=== PATIENT | male | born 1995 | race Two or more races ===

== ENCOUNTER → 2020-05-02 | Outpatient (CLI) | payer OTHER ==
[~2020-05-02] MED LIST: ALBUTEROL SULFATE 0.083% NEB 2.5 MG/3 ML AMPUL NEB ONE
== END ==
LOC: RT 07:51
PROVIDERS: ATTEND Physician Assistant
DX: R06.00 Dyspnea, unspecified (principal); R07.9 Chest pain, unspecified
CPT/HCPCS: 94060; J7613